=== PATIENT | female | born 1935 | race Caucasian/White ===

== ENCOUNTER → 2016-08-21 | Outpatient (CLI) | payer MEDICARE, BC | LOC: RAD 18:36 | PROVIDERS: ATTEND Internal Medicine | DX: C34.11 Malignant neoplasm of upper lobe, right bronchus or lung (principal) | CPT/HCPCS: 82565; 71552; A9576 ==

== ENCOUNTER 2016-08-25 13:44 | Day surgery (SDC) | payer MEDICARE, BC ==
[~2016-08-25 13:44] MED LIST: ACETAMINOPHEN 325 MG TABLET PO PRN; CIPROFLOXACIN 400 MG/D5W RTU 400 MG/200 ML RTUPB IV PRN; RINGERS SOLUTION,LACTATED 1,000 ML IV PRN
[2016-08-25] MEDS ORDERED: LIDOCAINE 1%/EPINEPHRINE INJ 20 ML VIAL ONE (14:42)
[2016-08-25 14:57] LABS: ANION GAP 16 (5-19); BLOOD UREA NITROGEN 22 mg/dL (7-20); CALCIUM 10.3 mg/dL (8.4-10.2); CARBON DIOXIDE 25 mmol/L (22-30); CHLORIDE 102 mmol/L (98-107); CREATININE RESULT 0.95 mg/dL (0.52-1.25); GLUCOSE 137 mg/dL (75-110); POTASSIUM 4.2 mmol/L (3.6-5.0); SODIUM 143.3 mmol/L (137-145)
[2016-08-25] MEDS ORDERED: KETAMINE HCL INJ 500 MG/10 ML VIAL ONE (15:19)
[2016-08-25] MEDS ORDERED: MIDAZOLAM 2 MG/2 ML INJ ONE ×2 (15:19)
[2016-08-25] MEDS ORDERED: FENTANYL CITRATE INJ/PF 100 MCG/2 ML AMPUL ONE (15:19)
[2016-08-25] MEDS ORDERED: PROPOFOL INJ 200 MG/20 ML VIAL IV ONE (15:20)
[2016-08-25] MEDS ORDERED: DIPHENHYDRAMINE HCL 50 MG/ML VIAL IV PRN (16:40)
[2016-08-25] MEDS ORDERED: PROMETHAZINE HCL INJ 25 MG/1 ML VIAL IV PRN (16:40)
[2016-08-25] MEDS ORDERED: ONDANSETRON HCL INJ/PF 4 MG/2 ML SDV IV PRN (16:40)
--- NOTE | 2016-08-25 16:57 | Operative Report ---
Operative Report DATE OF SURGERY: 08/25/16 PREOPERATIVE DIAGNOSIS: Locally advanced non-small cell lung carcinoma POSTOPERATIVE DIAGNOSIS: Same OPERATION: 1. Focused ultrasound of the neck. 2. ultrasound directed insertion of the lumen left subclavian [id number] catheter. 3. Interpretation of intraoperative fluoroscopy SURGEON: VICTORINA SUAREZ ANESTHESIA: LMAC TISSUE REMOVED OR ALTERED: None COMPLICATIONS: None ESTIMATED BLOOD LOSS: scant INTRAOPERATIVE FINDINGS: See below PROCEDURE: Informed consent was obtained. The patient was placed in Trendelenburg the left neck and chest wall were exposed, and prepped and draped in a sterile fashion. Surgical plan and surgical timeout discussed. The left neck was anesthetized with 1% lidocaine without epinephrine. Using the variable frequency linear transducer, real time, a micro-needle and wire were threaded into the left internal jugular vein. A suitable site for placement of 4 screws in the left subclavian position. Skin was anesthetized 1% lidocaine without epinephrine. A 3 cm incision was made with the knife, then electrocautery and blunt finger dissection used to develop a pocket large enough to accommodate a single-chamber port. Catheter was then attached to the port, the port tapped into position and the catheter tunneled between the 2 incisions. We then switched the micro-needle over to a conventional needle by placing the micro-introducer over the microwire, removing the wire, inserting a 0.035 conventional wire. Under fluoroscopic guidance, The tract was dilated up, the dilator removed, and the single lumen central venous access catheter was threaded into the right internal jugular vein uneventfully such that the catheter was unkinked with the tip in the superior vena cava. There was excellent aspiration and flush of saline using a Yoon needle through the single -lumen . Wounds closed with 3-0 Vicryl benzoin and Steri-Strips. The patient tolerated the procedure well. There were no complications. Portable upright chest x-ray pending at time of dictation.
--- NOTE | 2016-08-25 17:00 | PDOC DISCHARGE SUMMARY ---
Discharge Summary (SDC) - Discharge Final Diagnosis: Local advanced non-small cell lung carcinoma Date of Surgery: 08/25/16 Discharge Date: 08/25/16 Condition: Good Treatment or Instructions: [facility] [address] [place] [id number] Discharge Instructions: Neck Surgery 1. General Information: a. Do not drive a car or operate machinery for 1-2 weeks or as long as taking narcotics for pain. b. Do not consume alcohol, tranquilizers, sleeping medications or any non- prescribed medications for 24 hours unless approved by your doctor or as long as taking pain medication. c. Do not make important decisions or sign any important papers for the first 24 hours after surgery. d. When discharged home the same day of surgery have a responsible person with you for the first night. 2. Activity Restrictions: 2 weeks. a. Avoid heavy lifting > 10 lbs, straining, sports, mowing lawn, shoveling snow, vacuum cleaning and bending over a lot. Limit bending to taking a shower and getting dressed. Sleep with head elevated (2 pillows). b. Walking is important to avoid blood clots in the legs and deep breathing can prevent pneumonia. c. It is fine to go up and down steps, ride in a car, and use a stationary bike with low resistance. A shower in 2 days. 3. Treatment: a. The dressing can be removed the day after surgery and to shower then daily is fine, but you should not bathe in the tub or go swimming for 2 weeks. The paper strips (steri-strips) on the skin will fall off and can get wet with a shower, just pat them dry. The sutures dissolve and the strips will be removed in the office on your follow up visit if they have not fallen off by then. May shower 24 hours after surgery; if your incision was glued you may wash your neck and expect glue to fall off in about 2 weeks. b. Do not use oils, powders or lotion on your incision until after the first postoperative visit. Then you may begin to apply daily to the incision a cream of your choice (Vitamin E, cocoa butter, scar creams) to help soften the scar. c. If you are fair skinned it would be ricardo to use sunscreen on the scar for the first 6 months or keep it covered to avoid tanning pigment deposits being trapped in the scar creating a dark line instead of a pink scar. 4. Medications: a. You may take narcotic prescription tablets for pain if needed, one or two every 4 hours (Toradol ). b. Stop the narcotic when able since you cannot take and drive and they may cause constipation. You may switch to plain Tylenol, Advil or Aleve as you transition from the narcotic. Many adults find good pain relief with Ibuprofen 600-800 mg three times a day with meals to work well to avoid narcotic use. High doses of Ibuprofen should only be used for short courses since it can cause indigestion, ulcer bleeding in the stomach and harm kidney function. c. You should resume all normal medications unless a change is specified by your doctors. d. a. If going home same day of surgery you should begin with clear liquids and if do well then advance to a normal diet with foods low in fat and protein. Small portion sizes may be ricardo the first night to lessen risk of vomiting. b. When discharged after a hospital stay you may resume a normal diet. 6. Notify Physician If: a. Worsening of pain or swelling in neck, persistent bleeding at the operative site, nausea and vomiting, fever above 101, unable to urinate and bladder pressure after 8-12 hours, increased redness, drainage, or foul smelling discharge from the incision. b. If you have difficulty breathing or chest pain, call an ambulance and/or go to the Emergency Room. 7. Follow Up Care: a. Schedule a follow up appointment with your doctor for 2 weeks. In the event of any postoperative problems or questions or you may call the office during business hours or the On-Call physician evenings and weekends at [facility]. [facility] 8. I understand the instructions for my postoperative care as described above and a copy has been given to me. Patient/Significant Other Witness Date Prescriptions: Ketorolac Tromethamine [Toradol 10 mg Tablet] 10 mg PO Q6 PRN #20 tablet PRN Reason: Discharge Diet: As Tolerated Discharge Activity: Activity As Tolerated Home Care Assistance: None Needed Report the Following to Your Physician Immediately: Shortness of Breath, Increase in Pain, Fever over 101 Degrees
[2016-08-25 19:08] VITALS: BP 134/64
== END 2016-08-25 19:05 | disposition home or self-care (01) ==
LOC: CCL 13:44
PROVIDERS: ATTEND Surgery
PROC: 05H633Z Insertion of Infusion Device into Left Subclavian Vein, Percutaneous Approach (ICD-10-PCS; principal; 2016-08-25 16:00)
DX: C34.11 Malignant neoplasm of upper lobe, right bronchus or lung (principal); E11.9 Type 2 diabetes mellitus without complications; M19.90 Unspecified osteoarthritis, unspecified site; I10 Essential (primary) hypertension; J44.9 Chronic obstructive pulmonary disease, unspecified; Z88.8 Allergy status to other drugs, medicaments and biological substances; Z88.0 Allergy status to penicillin; Z87.442 Personal history of urinary calculi; Z87.891 Personal history of nicotine dependence; Z85.118 Personal history of other malignant neoplasm of bronchus and lung; Z79.84 Long term (current) use of oral hypoglycemic drugs; Z79.899 Other long term (current) drug therapy; Z79.82 Long term (current) use of aspirin
CPT/HCPCS: 36415; 82962; 80048; 71010; 77001; 36561; C1752; C1788; J2250; J3010; J3490; J2704; J0744; J1642; 532

== ENCOUNTER 2016-11-29 12:56 | Emergency (ER) | payer MEDICARE, BC ==
[2016-11-29] MEDS ORDERED: ASPIRIN 81 MG TABLET, CHEWABLE PO ONE (13:26)
--- NOTE | 2016-11-29 13:38 | ER Document Report ---
ED Medical Screen (RME) - General Chief Complaint: Weakness Stated Complaint: FATIGUE Time Seen by Provider: 11/29/16 13:28 TRAVEL OUTSIDE OF THE [place] IN LAST 30 DAYS: No - HPI Patient complains to provider of: General Weakness, Tachycardia, Hypotension Onset: Yesterday Notes: Obese female with known diagnosis of lung cancer presents with approximately 2 day history of persistent tachycardia with a lower than normal blood pressure and generalized weakness fatigue. Patient last chemotherapy approximately 4 weeks ago. Patient does have a port for chemotherapy. Patient was feeling well on Thursday was actually out cutting the grass and her family form on a tractor. After that she states she was feeling unwell. Took her heart rate and blood pressure at home. Heart rate greater than 130 systolic blood pressure approximately 80. Patient contacted her oncologist. Recommended patient hold blood pressure medication and be evaluated in the emergency department soon as possible. Patient presents today now still stating she has persistent fast beat. Generalized malaise. Patient denies syncope, chest pain , shortness of breath, nausea, vomiting, diaphoresis 11/29/16 13:31 11/29/16 13:39 - Related Data Allergies/Adverse Reactions: fluvastatin sodium [From Lescol] Allergy (Severe, Verified 11/29/16 13:09) Hives levofloxacin Allergy (Severe, Verified 11/29/16 13:09) N AND V pioglitazone [From Actos] Allergy (Severe, Verified 11/29/16 13:09) RASH amoxicillin [Amoxicillin] Allergy (Mild, Verified 11/29/16 13:09) Hives benazepril HCl [From Lotensin] Adverse Reaction (Mild, Verified 11/29/16 13:09) COUGH ramipril [From Altace] Adverse Reaction (Mild, Verified 11/29/16 13:09) COUGH simvastatin [From Zocor] Adverse Reaction (Mild, Verified 11/29/16 13:09) Hives Past Medical History - Past Medical History Cardiac Medical History: Reports: Hx Hypertension - ON MEDS Denies: Hx Coronary Artery Disease, Hx Heart Attack Pulmonary Medical History: Denies: Hx Asthma, Hx Bronchitis, Hx COPD, Hx Pneumonia Neurological Medical History: Denies: Hx Cerebrovascular Accident, Hx Seizures Renal/ Medical History: Denies: Hx Peritoneal Dialysis GI Medical History: Denies: Hx Hepatitis, Hx Hiatal Hernia, Hx Ulcer Musculoskeltal Medical History: Reports Hx Arthritis - all over Infectious Medical History: Denies: Hx Hepatitis Past Surgical History: Reports: Hx Vascular Surgery - port. Denies: Hx Hysterectomy, Hx Mastectomy, Hx Open Heart Surgery, Hx Pacemaker - Immunizations Hx Diphtheria, Pertussis, Tetanus Vaccination: No Review of Systems - Review of Systems Cardiovascular: Heart racing Physical Exam - Vital signs Vitals: Temp Pulse Resp BP Pulse Ox 98.4 F 129 H 18 116/51 L 93 11/29/16 13:07 11/29/16 13:07 11/29/16 13:07 11/29/16 13:07 11/29/16 13:07 - Respiratory Respiratory status: No respiratory distress. No: Depressed respirations, Retractions, Tachypnea Breath sounds: Normal. No: Rales - Cardiovascular Rhythm: Tachycardia Course - Vital Signs Vital signs: Temp Pulse Resp BP Pulse Ox 98.4 F 129 H 18 116/51 L 93 11/29/16 13:07 11/29/16 13:07 11/29/16 13:07 11/29/16 13:07 11/29/16 13:07
[2016-11-29] MEDS ORDERED: NORMAL SALINE 1000 ML 500 ML IV ONE ×2 (14:07→16:09)
--- NOTE | 2016-11-29 14:10 | ER Document Report ---
ED Dizziness/Weakness - General Chief Complaint: Weakness Stated Complaint: FATIGUE Time Seen by Provider: 11/29/16 13:28 Mode of Arrival: Ambulatory Information source: Patient, Relative Notes: Patient presents with family stating that she has felt generalized fatigue the past 2 months. Patient states that she had her check her blood pressure and she noticed that she was hypotensive and tachycardic for the past 2 days. Patient called her primary doctor who advised having her come to the hospital for evaluation. Patient denies any syncope, chest pain, shortness of breath, nausea, or vomiting. Patient does have an appointment with her primary doctor on Thursday for recheck. Patient denies any recent illness. Patient assumed that her heart rate was beating fast as she had recently and mowed her lawn on a riding lawnmower 2 days ago. Family have been keeping a log of her vital signs since yesterday. Patient blood pressure yesterday was 81/59 with heart rate of 122. Patient's blood pressure earlier today was 87/57 and her heart rate was 115 patient did not take her blood pressure medication this morning due to her hypotension. At 1145 patient's heart rate was in the 120s and her pressure was 101/54. TRAVEL OUTSIDE OF THE [place] IN LAST 30 DAYS: No - HPI Patient complains to provider of: Weakness. No: Dizziness, Syncope Onset: Other - fatigue x2 months, tachycardia x 2 days Onset/Duration: Persistent Quality of pain: No pain Pain Level: Denies Associated symptoms: denies: Chest pain, Dizzy, Fainted, Headache, Nausea, Short of breath, Sweating, Vomiting Baseline gait: Walks w/o assistance - Related Data Allergies/Adverse Reactions: fluvastatin sodium [From Lescol] Allergy (Severe, Verified 11/29/16 13:09) Hives levofloxacin Allergy (Severe, Verified 11/29/16 13:09) N AND V pioglitazone [From Actos] Allergy (Severe, Verified 11/29/16 13:09) RASH amoxicillin [Amoxicillin] Allergy (Mild, Verified 11/29/16 13:09) Hives benazepril HCl [From Lotensin] Adverse Reaction (Mild, Verified 11/29/16 13:09) COUGH ramipril [From Altace] Adverse Reaction (Mild, Verified 11/29/16 13:09) COUGH simvastatin [From Zocor] Adverse Reaction (Mild, Verified 11/29/16 13:09) Hives Past Medical History - General Information source: Patient, Relative - Social History Smoking Status: Never Smoker Frequency of alcohol use: None Drug Abuse: None Lives with: Spouse/Significant other Family History: Reviewed & Not Pertinent - Past Medical History Cardiac Medical History: Reports: Hx Hypertension - ON MEDS Denies: Hx Coronary Artery Disease, Hx Heart Attack Pulmonary Medical History: Denies: Hx Asthma, Hx Bronchitis, Hx COPD, Hx Pneumonia Neurological Medical History: Denies: Hx Cerebrovascular Accident, Hx Seizures Endocrine Medical History: Reports: Hx Diabetes Mellitus Type 2 Renal/ Medical History: Denies: Hx Peritoneal Dialysis Malignancy Medical History: Reports: Hx Lung Cancer GI Medical History: Denies: Hx Hepatitis, Hx Hiatal Hernia, Hx Ulcer Infectious Medical History: Denies: Hx Hepatitis Past Surgical History: Reports: Hx Vascular Surgery - port. Denies: Hx Hysterectomy, Hx Mastectomy, Hx Open Heart Surgery, Hx Pacemaker - Immunizations Hx Diphtheria, Pertussis, Tetanus Vaccination: No Review of Systems - Review of Systems Constitutional: No symptoms reported. denies: Fever, Recent illness EENT: No symptoms reported Cardiovascular: Heart racing - past 2 days. denies: Chest pain, Syncope, Dizziness Respiratory: No symptoms reported. denies: Cough, Hurts to breathe, Short of breath Gastrointestinal: No symptoms reported. denies: Abdominal pain, Nausea, Vomiting Genitourinary: No symptoms reported. denies: Dysuria, Flank pain Female Genitourinary: No symptoms reported Musculoskeletal: No symptoms reported. denies: Back pain, Neck pain Skin: No symptoms reported Hematologic/Lymphatic: No symptoms reported Neurological/Psychological: No symptoms reported Physical Exam - Vital signs Vitals: Temp Pulse Resp BP Pulse Ox 98.4 F 129 H 18 116/51 L 93 11/29/16 13:07 11/29/16 13:07 11/29/16 13:07 11/29/16 13:07 11/29/16 13:07 - General General appearance: Appears well, Alert In distress: None - HEENT Head: Normocephalic, Atraumatic Eyes: Normal Conjunctiva: Normal Extraocular movements intact: Yes Pupils: PERRL Nasal: Normal Mouth/Lips: Normal Mucous membranes: Normal Pharynx: Normal Neck: Normal, Supple. No: Lymphadenopathy - Respiratory Respiratory status: No respiratory distress Chest status: Nontender Breath sounds: Normal. No: Rales, Rhonchi, Stridor, Wheezing Chest palpation: Normal - Cardiovascular Rhythm: Tachycardia Heart sounds: S1 appreciated, S2 appreciated Murmur: No - Abdominal Inspection: Normal Distension: No distension Bowel sounds: Normal Tenderness: Nontender Organomegaly: No organomegaly - Back Back: Normal, Nontender. No: CVA tenderness, Vertebra tenderness - Extremities General upper extremity: Normal inspection, Normal ROM General lower extremity: Normal inspection, Normal ROM - Neurological Neuro grossly intact: Yes Cognition: Normal Jyoti Coma Scale Eye Opening: Spontaneous Sargents Coma Scale Verbal: Oriented Jyoti Coma Scale Motor: Obeys Commands Jyoti Coma Scale Total: 15 - Psychological Associated symptoms: Normal affect, Normal mood - Skin Skin Temperature: Warm Skin Moisture: Dry Skin Color: Pale Course - Re-evaluation Re-evalutation: 11/29/16 15:15 500 ml saline bolus infused, patient states that she is feeling good at this time. Patient's heart rate has come down to the 100s, there is stable, will continue to monitor. 11/29/16 16:34 monitor technician now with irregular heart rhythm in the 100's, repeat ekg ordered. RN states she noticed rhythm change after ambulating pt to bathroom 11/29/16 17:[address] Suarez who recommends obtaining repeat trop. Agrees with plan to road test pt, if pt remains tachycardic, he advises consultation with hospitalist 11/29/16 17:47 Patient ambulated in the department, oxygen saturation dipped to 92%, heart rate increased to 133, blood pressure remained stable 142/93. Patient denies any chest pain but complains only of generalized fatigue. Pt was objectively dyspnic on exertion. 11/29/16 18:[address] Grady who recommends consultation with hospitalist for obs admission. States that pt will need cardiology consult and likely stress test. consulted with dr Wilkins who reviewed pt's diagnostic test results and does not feel admission would be beneficial and that pt's dyspnea and tachycardia are likely a result of age, hx, and recent cancer treatments. 11/29/16 18:25 Dr Suarez spoke with Dr Wilkins, Dr Wilkins declines admitting pt at this time, Dr Suarez discussed concerns about pt's tachycardia in spite of pt's otherwise benign diagnostic tests results. 11/29/16 18:40 Dr Suarez to bedside for exam, does not recommend any additional testing. Discussed plan of care with pt and family. Pt encouraged to continue to keep track of vital signs and return for any concerns. Pt advised to hold amlodipine. Pt advised to check bp prior to taking her bp medications. Pt encouraged to see her PCP Thursday as planned. No concern for PE. Pt continues to deny any cp, abd or back pain. VS continue with HR 107, sat 95% rr 18. - Vital Signs Vital signs: Temp Pulse Resp BP Pulse Ox 98.4 F 129 H 18 116/51 L 93 11/29/16 13:07 11/29/16 13:07 11/29/16 13:07 11/29/16 13:07 11/29/16 13:07 - Laboratory Result Diagrams: 11/29/16 14:52 11/29/16 14:52 Laboratory results interpreted by me: 11/29/16 11/29/16 11/29/16 14:04 14:52 14:52 Hgb 11.9 L Hct 35.0 L RDW 18.3 H BUN 23 H Est GFR ( Amer) 58 L Est GFR (Non-Af Amer) 48 L Glucose 120 H POC Glucose 143 H Magnesium 1.4 L Labs- Entire Visit 11/29/16 11/29/16 11/29/16 14:04 14:52 14:52 WBC 7.9 RBC 3.88 Hgb 11.9 L Hct 35.0 L MCV 90 MCH 30.7 MCHC 34.0 RDW 18.3 H Plt Count 363 Seg Neutrophils % 70.2 Lymphocytes % 15.9 Monocytes % 11.9 Eosinophils % 1.6 Basophils % 0.4 Absolute Neutrophils 5.5 Absolute Lymphocytes 1.2 Absolute Monocytes 0.9 Absolute Eosinophils 0.1 Absolute Basophils 0.0 PT INR D-Dimer VBG pH VBG pCO2 VBG HCO3 VBG Base Excess Sodium 138.5 Potassium 3.8 Chloride 100 Carbon Dioxide 25 Anion Gap 14 BUN 23 H Creatinine 1.09 Est GFR ( Amer) 58 L Est GFR (Non-Af Amer) 48 L Glucose 120 H POC Glucose 143 H Lactic Acid Calcium 8.9 Magnesium 1.4 L Total Bilirubin 0.5 Direct Bilirubin 0.3 Indirect Bilirubin Not Reportable Neonat Total Bilirubin Not Reportable AST 18 ALT 26 Alkaline Phosphatase 54 Troponin I Total Protein 6.8 Albumin 3.8 TSH Urine Color Urine Appearance Urine pH Ur Specific [place] Urine Protein Urine Glucose (UA) Urine Ketones Urine Blood Urine Nitrite Urine Bilirubin Urine Urobilinogen Ur Leukocyte Esterase Urine WBC (Auto) Urine Mucus (Auto) Urine Ascorbic Acid 11/29/16 11/29/16 11/29/16 14:52 14:52 14:52 WBC RBC Hgb Hct MCV MCH MCHC RDW Plt Count Seg Neutrophils % Lymphocytes % Monocytes % Eosinophils % Basophils % Absolute Neutrophils Absolute Lymphocytes Absolute Monocytes Absolute Eosinophils Absolute Basophils PT 13.8 INR 0.99 D-Dimer VBG pH VBG pCO2 VBG HCO3 VBG Base Excess Sodium Potassium Chloride Carbon Dioxide Anion Gap BUN Creatinine Est GFR ( Amer) Est GFR (Non-Af Amer) Glucose POC Glucose Lactic Acid 1.3 Calcium Magnesium Total Bilirubin Direct Bilirubin Indirect Bilirubin Neonat Total Bilirubin AST ALT Alkaline Phosphatase Troponin I < 0.012 Total Protein Albumin TSH Urine Color Urine Appearance Urine pH Ur Specific [place] Urine Protein Urine Glucose (UA) Urine Ketones Urine Blood Urine Nitrite Urine Bilirubin Urine Urobilinogen Ur Leukocyte Esterase Urine WBC (Auto) Urine Mucus (Auto) Urine Ascorbic Acid 11/29/16 11/29/16 11/29/16 14:52 14:52 14:52 WBC RBC Hgb Hct MCV MCH MCHC RDW Plt Count Seg Neutrophils % Lymphocytes % Monocytes % Eosinophils % Basophils % Absolute Neutrophils Absolute Lymphocytes Absolute Monocytes Absolute Eosinophils Absolute Basophils PT INR D-Dimer 0.31 VBG pH 7.41 VBG pCO2 43.5 VBG HCO3 27.0 VBG Base Excess 2.0 Sodium Potassium Chloride Carbon Dioxide Anion Gap BUN Creatinine Est GFR ( Amer) Est GFR (Non-Af Amer) Glucose POC Glucose Lactic Acid Calcium Magnesium Total Bilirubin Direct Bilirubin Indirect Bilirubin Neonat Total Bilirubin AST ALT Alkaline Phosphatase Troponin I Total Protein Albumin TSH 0.77 Urine Color Urine Appearance Urine pH Ur Specific [place] Urine Protein Urine Glucose (UA) Urine Ketones Urine Blood Urine Nitrite Urine Bilirubin Urine Urobilinogen Ur Leukocyte Esterase Urine WBC (Auto) Urine Mucus (Auto) Urine Ascorbic Acid 11/29/16 11/29/16 15:58 17:14 WBC RBC Hgb Hct MCV MCH MCHC RDW Plt Count Seg Neutrophils % Lymphocytes % Monocytes % Eosinophils % Basophils % Absolute Neutrophils Absolute Lymphocytes Absolute Monocytes Absolute Eosinophils Absolute Basophils PT INR D-Dimer VBG pH VBG pCO2 VBG HCO3 VBG Base Excess Sodium Potassium Chloride Carbon Dioxide Anion Gap BUN Creatinine Est GFR ( Amer) Est GFR (Non-Af Amer) Glucose POC Glucose Lactic Acid Calcium Magnesium Total Bilirubin Direct Bilirubin Indirect Bilirubin Neonat Total Bilirubin AST ALT Alkaline Phosphatase Troponin I < 0.012 Total Protein Albumin TSH Urine Color YELLOW Urine Appearance CLEAR Urine pH 5.0 Ur Specific [place] 1.006 Urine Protein NEGATIVE Urine Glucose (UA) NEGATIVE Urine Ketones NEGATIVE Urine Blood NEGATIVE Urine Nitrite NEGATIVE Urine Bilirubin NEGATIVE Urine Urobilinogen NEGATIVE Ur Leukocyte Esterase NEGATIVE Urine WBC (Auto) 1 Urine Mucus (Auto) RARE Urine Ascorbic Acid NEGATIVE 11/29/16 19:02 - Diagnostic Test Radiology reviewed: Reports reviewed - EKG Interpretation by Me EKG shows normal: Sinus rhythm Rate: Tachycardia Rhythm: APC's Discharge - Discharge Clinical Impression: Tachycardia, Exertional dyspnea Condition: Stable Disposition: HOME, SELF-CARE Instructions: Dyspnea, Nonspecific ([facility]) Additional Instructions: Return immediately for any new or worsening symptoms Followup with your primary care provider, on Thursday as planned Hold your amlodipine until you are re seen by your primary doctor check your vital signs at least 3 times a day until re evaluated by your primary care provider avoid any heavy exertion follow [facility] with [facility] further evaluation Referrals: MANINDER BALDERAS MD [Primary Care Provider] - 12/01/16 CHRIS NICOLE MD [ACTIVE STAFF] - Follow up in 3-5 days
--- NOTE | 2016-11-29 14:21 | RADIOLOGY REPORT (SQ) ---
EXAM DESCRIPTION: CHEST SINGLE VIEW COMPLETED DATE/TIME: 11/29/2016 2:00 pm REASON FOR STUDY: HR COMPARISON: 08/25/2016 NUMBER OF VIEWS: One view. TECHNIQUE: Single frontal radiographic view of the chest acquired. LIMITATIONS: None. FINDINGS: LUNGS AND PLEURA: Emphysematous changes. Stable areas of right apical scarring. MEDIASTINUM AND HILAR STRUCTURES: No masses. Contour normal. HEART AND VASCULAR STRUCTURES: Heart normal in size. Normal vasculature. BONES: No acute findings. HARDWARE: Stable position of left-sided port. OTHER: No other significant finding. IMPRESSION: COPD. NO ACUTE RADIOGRAPHIC FINDING IN THE CHEST. TECHNICAL DOCUMENTATION: JOB ID: [id number] [email or web address]- All Rights Reserved
--- NOTE | 2016-11-29 15:15 | EKG REPORT ---
SEVERITY:- BORDERLINE ECG - SINUS TACHYCARDIA BORDERLINE T ABNORMALITIES, ANT-LAT LEADS : Confirmed by: Kiesha Mustafa MD 29-Nov-2016 15:14:34
[2016-11-29 15:24] LABS: ABSOLUTE EOSINOPHILS # (AUTO) 0.1 10^3/uL (0.0-0.6); ABSOLUTE LYMPHOCYTES (AUTO) 1.2 10^3/uL (0.5-4.7); ABSOLUTE MONOCYTES (AUTO) 0.9 10^3/uL (0.1-1.4); ABSOLUTE NEUT (AUTO) 5.5 10^3/uL (1.7-8.2); BASOPHILS % (AUTO) 0.4 % (0-2); EOSINOPHILS % (AUTO) 1.6 % (0-6); HEMOGLOBIN 11.9 g/dL (12.0-15.5); HGB HCT DIFFERENCE 0.7; LYMPHOCYTES % (AUTO) 15.9 % (13-45); MEAN CORPUSCULAR HEMOGLOBIN 30.7 pg (27.0-33.4); MEAN CORPUSCULAR VOLUME 90 fl (80-97); MONOCYTES % (AUTO) 11.9 % (3-13); RED BLOOD COUNT 3.88 10^6/uL (3.72-5.28); RED CELL DISTRIBUTION WIDTH 18.3 % (11.5-14.0); SEGMENTED NEUTROPHILS % (AUTO) 70.2 % (42-78); VENOUS BLOOD PCO2 43.5 mmHg (35-63); VENOUS BLOOD PH 7.41 (7.30-7.42); WHITE BLOOD COUNT 7.9 10^3/uL (4.0-10.5)
[2016-11-29 15:31] LABS: PROTHROMBIN TIME 13.8 SEC (11.4-15.4)
[2016-11-29 15:41] LABS: ALANINE AMINOTRANSFERASE 26 U/L (9-52); ALBUMIN 3.8 g/dL (3.5-5.0); ALKALINE PHOSPHATASE 54 U/L (38-126); ANION GAP 14 (5-19); ASPARTATE AMINO TRANSFERASE 18 U/L (14-36); BILIRUBIN,DIRECT 0.3 mg/dL (0.0-0.4); BILIRUBIN,TOTAL 0.5 mg/dL (0.2-1.3); BLOOD UREA NITROGEN 23 mg/dL (7-20); CALCIUM 8.9 mg/dL (8.4-10.2); CARBON DIOXIDE 25 mmol/L (22-30); CHLORIDE 100 mmol/L (98-107); CREATININE RESULT 1.09 mg/dL (0.52-1.25); GLUCOSE 120 mg/dL (75-110); MAGNESIUM 1.4 mg/dL (1.6-2.3); POTASSIUM 3.8 mmol/L (3.6-5.0); SODIUM 138.5 mmol/L (137-145); TOTAL PROTEIN 6.8 g/dL (6.3-8.2)
[2016-11-29 16:23] LABS: APPEARANCE,URINE CLEAR; BILIRUBIN,URINE NEGATIVE (NEGATIVE); GLUCOSE, URINE NEGATIVE (NEGATIVE); KETONES,URINE NEGATIVE (NEGATIVE); LEUKOCYTE ESTERASE,URINE NEGATIVE (NEGATIVE); NITRITE,URINE NEGATIVE (NEGATIVE); PROTEIN,URINE NEGATIVE (NEGATIVE); URINE SPECIFIC GRAVITY 1.006; UROBILINOGEN,URINE NEGATIVE mg/dL (<2.0)
[2016-11-29] MEDS ORDERED: MAGNESIUM OXIDE 400 MG TABLET PO ONE (17:15)
[2016-11-29] MEDS ORDERED: HEPARIN SOD (PORCINE) 1,000 UNIT/ML 10 ML VIAL ONE (19:22)
[2016-11-29 19:36] VITALS: BP 129/70
--- NOTE | 2016-11-30 11:10 | EKG REPORT ---
SEVERITY:- ABNORMAL ECG - SINUS TACHYCARDIA MULTIPLE ATRIAL PREMATURE COMPLEXES BORDERLINE T ABNORMALITIES, ANT-LAT LEADS : Confirmed by: Kiesha Mustafa MD 30-Nov-2016 11:09:33
== END 2016-11-29 19:25 | disposition home or self-care (01) ==
LOC: ER 12:56
DX: R00.0 Tachycardia, unspecified (principal); R06.00 Dyspnea, unspecified; R53.1 Weakness; R53.83 Other fatigue
CPT/HCPCS: 93005; 36591; 99285; 36415; 87040; 87086; 82962; 83735; 84443; 85025; 85610; 87088; 80053; 81001; 84484; 87186; 85379; 82803; 83605; 71010; 93010; A9270 ×2; J7030

== ENCOUNTER → 2017-05-12 | Outpatient (CLI) | payer MEDICARE, BC ==
--- NOTE | 2017-05-12 09:01 | RADIOLOGY REPORT (SQ) ---
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 Images reviewed with lung, soft tissue and bone windows. Reconstructed coronal and sagittal MPR images reviewed. All images st ored on PACS. All CT scanners at this facility use dose modulation, iterative reconstruction, and/or weight based d osing when appropriate to reduce radiation dose to as low as reasonably achievable (ALARA). [facility]: Dose Right [facility]: CareDose [facility]: Dose Right [facility]: Teradose 4D [facility]: [employer] RADIATION DOSE: CT Rad equipment meets quality standard of care and radiation dose reduction techniq ues were employed. CTDIvol: 3.6 mGy. DLP: 150 mGy-cm. mGy. LIMITATIONS: No technical limitations. FINDINGS: LUNGS AND PLEURA: In the apical posterior segment right upper lobe, bandlike consolidation and volume loss with bronchiectasis is present, similar compared to PET-CT 01/04/2017. Remainder of the lungs exhibit diffuse obstructive lung disease with hyperinflation and hyperlucency. No worrisome pulmonary nodules. There is a small right pleural effusion, increased compared to PET-CT 01/04/2017. No pneumothorax. HILAR AND MEDIASTINAL STRUCTURES: There is a 1.2 x 0.8 cm precarinal lymph node (was 1.7 x 1 cm in si ze on 01/04/2017). HEART AND VASCULAR STRUCTURES: No aneurysm. No pericardial effusion. Heavily calcified [place] coron jorge arteries and aortic valve UPPER ABDOMEN: No significant findings. Limited exam. THYROID AND OTHER SOFT TISSUES: No masses. No adenopathy. BONES: Osteoporotic HARDWARE: None in the chest. OTHER: No other significant findings. IMPRESSION: Stable scarring in the apical posterior segment right upper lobe Decrease in size of precarinal lymph node compared to PET-CT 01/04/2017 Interval development of a small right pleural effusion TECHNICAL DOCUMENTATION: JOB ID: [id number] Quality ID # [id number]: Final reports with documentation of one or more dose reduction techniques (e.g., Au tomated exposure control, adjustment of the mA and/or kV according to patient size, use of iterative reconstruction technique) 2010 [employer]- All Rights Reserved
== END ==
LOC: RAD 08:24
PROVIDERS: ATTEND Internal Medicine
DX: C34.11 Malignant neoplasm of upper lobe, right bronchus or lung (principal)
CPT/HCPCS: 71250

== ENCOUNTER → 2017-08-29 | Outpatient (CLI) | payer MEDICARE, BC ==
--- NOTE | 2017-08-29 15:46 | RADIOLOGY REPORT (SQ) ---
EXAM DESCRIPTION: MRI LUMBAR SPINE WITHOUT COMPLETED DATE/TIME: 08/29/2017 12:38 pm REASON FOR STUDY: RADICULOPATHY, LUMBAR REGION M54.17 RADICULOPATHY, LUMBOSACRAL REGION COMPARISON: None. TECHNIQUE: Sagittal and Axial imaging includes T1, T2, STIR and gradient echo sequences. Coronal T2/ HASTE imaging. LIMITATIONS: None. FINDINGS: VISUALIZED UPPER ABDOMEN: Limited evaluation. No acute or suspicious findings suggested. SEGMENTATION: No transitional anatomy. The lowest well-developed disc space is labeled L5-S1. ALIGNMENT: Marked convex left scoliosis. VERTEBRAE: Intact. BONE MARROW: Normal. No marrow replacement or reactive changes. DISC SIGNAL: Desiccation multiple levels. POSTERIOR ELEMENTS: Intact. HARDWARE: None in the spine. CORD AND CONUS: Normal in size and signal intensity. Conus at the appropriate level. SOFT TISSUES: No aortic aneurysm seen. No bulky retroperitoneal adenopathy or mass. No paraspinal mas s or fluid. L1-L2: Ventral impression on thecal sac due to disc bulge. L2-L3: Ventral impression on the thecal sac due to disc bulge. Mild facet arthropathy. L3-L4: Mild spinal stenosis due to disc osteophyte complex. Disc material contacts the exiting right L3 nerve root in the neural foramen. L4-L5: Mild spinal stenosis. Facet arthropathy. Disc contacts the exiting right L4 nerve root in th e neural foramen. L5-S1: Small central and upward disc protrusion indenting the ventral margin of thecal sac facet arth ropathy. Disc contacts both exiting nerve roots, worse on the left. LOWER THORACIC: Incompletely imaged. No stenosis seen. SACRUM: Visualized upper sacrum intact. OTHER: No other significant findings. IMPRESSION: Spondylosis, scoliosis and facet arthropathy. Mild spinal stenosis. Neural foraminal s tenosis. TECHNICAL DOCUMENTATION: JOB ID: [id number] [employer]- All Rights Reserved Reading location - IP/workstation name: [email or web address]
== END ==
LOC: RAD 10:39
PROVIDERS: ATTEND Internal Medicine
DX: M54.17 Radiculopathy, lumbosacral region (principal); M47.896 Other spondylosis, lumbar region
CPT/HCPCS: 72148

== ENCOUNTER → 2017-09-14 | Outpatient (CLI) | payer MEDICARE, BC ==
--- NOTE | 2017-09-14 19:33 | RADIOLOGY REPORT (SQ) ---
EXAM DESCRIPTION: CT CHEST WITHOUT COMPLETED DATE/TIME: 09/14/2017 9:07 am REASON FOR STUDY: C34.11 MALIGNANT NEOPLASM OF UPPER LOBE, RIGHT BRONCHUS OR LUNG C34.11 MALIGNANT NEOPLASM OF UPPER LOBE, RIGHT BRONCHUS OR L COMPARISON: PET-CT 01/04/2017 CT chest 05/12/2017 TECHNIQUE: CT scan performed of the chest without intravenous contrast. Images reviewed with lung, soft tissue and bone windows. Reconstructed coronal and sagittal MPR images reviewed. All images st ored on PACS. All CT scanners at this facility use dose modulation, iterative reconstruction, and/or weight based d osing when appropriate to reduce radiation dose to as low as reasonably achievable (ALARA). [facility]: Dose Right [facility]: CareDose [facility]: Dose Right [facility]: Teradose 4D [facility]: [employer] RADIATION DOSE: 3.5 mGy. LIMITATIONS: No technical limitations. FINDINGS: LUNGS AND PLEURA: Stable scarring in the posterior aspect right lung apex compared to prio r CT chest 05/12/2017 and PET-CT 01/04/2017. Remainder of the lungs are hyperinflated and hyperlucent from obstructive disease. No acute infiltrates. Pleural effusions seen 05/12/2017 and significantly smaller, with trace fluid in the right posterior co stophrenic sulcus. HILAR AND MEDIASTINAL STRUCTURES: 1.2 x 0.8 cm precarinal lymph node axial image 24, unchanged. HEART AND VASCULAR STRUCTURES: No aneurysm. No pericardial effusion. UPPER ABDOMEN: No significant findings. Limited exam. THYROID AND OTHER SOFT TISSUES: No masses. No adenopathy. BONES: No significant finding. HARDWARE: None in the chest. OTHER: No other significant findings. IMPRESSION: Stable appearance of the chest compared to CT exam 05/12/2017. TECHNICAL DOCUMENTATION: JOB ID: [id number] Quality ID # 436: Final reports with documentation of one or more dose reduction techniques (e.g., Au tomated exposure control, adjustment of the mA and/or kV according to patient size, use of iterative reconstruction technique) 2010 [employer]- All Rights Reserved Reading location - IP/workstation name: [email or web address]
== END ==
LOC: RAD 08:58
PROVIDERS: ATTEND Internal Medicine
DX: C34.11 Malignant neoplasm of upper lobe, right bronchus or lung (principal)
CPT/HCPCS: 71250

== ENCOUNTER → 2018-03-17 | Outpatient (CLI) | payer MEDICARE, BC ==
--- NOTE | 2018-03-17 09:48 | RADIOLOGY REPORT (SQ) ---
EXAM DESCRIPTION: CT CHEST WITHOUT COMPLETED DATE/TIME: 03/17/2018 8:52 am REASON FOR STUDY: LUNG CA (C34.11) C34.11 MALIGNANT NEOPLASM OF UPPER LOBE, RIGHT BRONCHUS OR L COMPARISON: 09/14/2017 TECHNIQUE: CT scan performed of the chest without intravenous contrast. Images reviewed with lung, soft tissue and bone windows. Reconstructed coronal and sagittal MPR images reviewed. All images st ored on PACS. All CT scanners at this facility use dose modulation, iterative reconstruction, and/or weight based d osing when appropriate to reduce radiation dose to as low as reasonably achievable (ALARA). [facility]: Dose Right [facility]: CareDose [facility]: Dose Right [facility]: Teradose 4D [facility]: [employer] RADIATION DOSE: CT Rad equipment meets quality standard of care and radiation dose reduction techniq ues were employed. CTDIvol: 3.6 mGy. DLP: 139 mGy-cm. mGy. LIMITATIONS: No technical limitations. FINDINGS: LUNGS AND PLEURA: Stable scarring in the posterior right upper lung and left apex. No enl arging nodules. No effusions. HILAR AND MEDIASTINAL STRUCTURES: No pathologically enlarged lymph nodes. HEART AND VASCULAR STRUCTURES: No aneurysm. No pericardial effusion. UPPER ABDOMEN: No significant findings. Limited exam. THYROID AND OTHER SOFT TISSUES: No masses. No adenopathy. BONES: No acute findings. HARDWARE: None in the chest. OTHER: Left-sided port tip in the SVC. IMPRESSION: Stable appearance of the chest. TECHNICAL DOCUMENTATION: JOB ID: [id number] Quality ID # 436: Final reports with documentation of one or more dose reduction techniques (e.g., Au tomated exposure control, adjustment of the mA and/or kV according to patient size, use of iterative reconstruction technique) 2010 [employer]- All Rights Reserved Reading location - IP/workstation name: [email or web address]
== END ==
LOC: RAD 08:41
PROVIDERS: ATTEND Internal Medicine
DX: C34.11 Malignant neoplasm of upper lobe, right bronchus or lung (principal)
CPT/HCPCS: 71250

== ENCOUNTER → 2018-04-01 | Outpatient (CLI) | payer MEDICARE, BC ==
--- NOTE | 2018-04-01 14:06 | RADIOLOGY REPORT (SQ) ---
EXAM DESCRIPTION: CAROTID DOPPLER COMPLETED DATE/TIME: 04/01/2018 1:50 pm REASON FOR STUDY: VENOUS ENGORGMENT BILATERAL EYES H34.823 VENOUS ENGORGEMENT, BILATERAL COMPARISON: None. TECHNIQUE: Grayscale ultrasound, Doppler velocity and spectra, and color Doppler images acquired of the extra-cranial carotid and vertebral arteries. Images stored on PACS. LIMITATIONS: None. FINDINGS: RIGHT CAROTID CCA Velocities: Within normal limits. ICA Velocities Peak systolic 0.71 m/s. End diastolic 0.17 m/s. Proximal ICA/CCA peak systolic ratio 1.0. Spectra normal. No significant plaque. LEFT CAROTID CCA Velocities: Within normal limits. ICA Velocities Peak systolic 0.97 m/s. End diastolic 0.23 m/s. Proximal ICA/CCA peak systolic ratio 1.5. Spectra normal. No significant plaque. VERTEBRAL ARTERIES: Antegrade flow. Normal waveforms. SUBCLAVIAN ARTERIES: No finding. OTHER: No other significant finding. IMPRESSION: NO HEMODYNAMICALLY SIGNIFICANT STENOSIS. COMMENT: Quality ID #195: Velocity criteria are extrapolated from the diameter data as defined by t he Society of Radiologists in Ultrasound Consensus Conference. Radiology 2003: 229; 340-346. TECHNICAL DOCUMENTATION: JOB ID: [id number] [employer]- All Rights Reserved Reading location - IP/workstation name: [email or web address]
== END ==
LOC: SP 12:40
PROVIDERS: ATTEND Ophthalmology
DX: H34.823 Venous engorgement, bilateral (principal)
CPT/HCPCS: 93880

== ENCOUNTER → 2018-09-15 | Outpatient (CLI) | payer MEDICARE, BC ==
--- NOTE | 2018-09-15 08:27 | RADIOLOGY REPORT (SQ) ---
EXAM DESCRIPTION: CT CHEST WITHOUT COMPLETED DATE/TIME: 09/15/2018 8:07 am REASON FOR STUDY: MALIGNANT NEOPLASM OF UPPER LOBE, RIGHT BRONCHUS OR LUNG C34.11 MALIGNANT NEOPLAS M OF UPPER LOBE, RIGHT BRONCHUS OR L COMPARISON: 03/17/2018 TECHNIQUE: CT scan performed of the chest without intravenous contrast. Images reviewed with lung, soft tissue and bone windows. Reconstructed coronal and sagittal MPR images reviewed. All images st ored on PACS. All CT scanners at this facility use dose modulation, iterative reconstruction, and/or weight based d osing when appropriate to reduce radiation dose to as low as reasonably achievable (ALARA). [facility]: Dose Right [facility]: CareDose [facility]: Dose Right [facility]: Teradose 4D [facility]: [employer] RADIATION DOSE: CT Rad equipment meets quality standard of care and radiation dose reduction techniq ues were employed. CTDIvol: 3.6 mGy. DLP: 141 mGy-cm. mGy. LIMITATIONS: No technical limitations. FINDINGS: LUNGS AND PLEURA: Persistent posterior right apical scarring and consolidation, mildly inc rease from prior. Stable appearance of the scarring at the left lung apex. Centrilobular and panac inar emphysema, stable. Stable linear bifid basilar scarring, right greater than left. No new nodul es or masses. No large effusion. No pneumothorax. HILAR AND MEDIASTINAL STRUCTURES: Unchanged evidence of right-sided volume loss with rightward medias tinal shift. Stable 1.0 cm subcarinal node. No new mediastinal hilar or axillary adenopathy. HEART AND VASCULAR STRUCTURES: Trace pericardial effusion. Scattered three-vessel coronary atheroscl erosis. Normal heart size. UPPER ABDOMEN: No significant findings. Limited exam. THYROID AND OTHER SOFT TISSUES: No masses. No adenopathy. BONES: No significant finding. HARDWARE: None in the chest. OTHER: No other significant findings. IMPRESSION: Mildly increased right posterior apical consolidation favored to represent progressive s carring and atelectasis. Although, underlying lesion is not entirely exclude. No other evidence to suggest new intrathoracic disease. No other evidence of acute intrathoracic process. TECHNICAL DOCUMENTATION: JOB ID: [id number] Quality ID # 436: Final reports with documentation of one or more dose reduction techniques (e.g., Au tomated exposure control, adjustment of the mA and/or kV according to patient size, use of iterative reconstruction technique) 2010 [employer]- All Rights Reserved Reading location - IP/workstation name: [email or web address]
== END ==
LOC: RAD 07:52
PROVIDERS: ATTEND Physician Assistant Medical
DX: C34.11 Malignant neoplasm of upper lobe, right bronchus or lung (principal)
CPT/HCPCS: 71250

== ENCOUNTER → 2019-03-07 | Outpatient (CLI) | payer MEDICARE, BC ==
--- NOTE | 2019-03-07 11:25 | RADIOLOGY REPORT (SQ) ---
EXAM DESCRIPTION: CT CHEST WITHOUT COMPLETED DATE/TIME: 03/07/2019 8:23 am REASON FOR STUDY: LUNG CA (C34.11) C34.11 MALIGNANT NEOPLASM OF UPPER LOBE, RIGHT BRONCHUS OR L COMPARISON: 09/15/2018 TECHNIQUE: CT scan performed of the chest without intravenous contrast. Images reviewed with lung, soft tissue and bone windows. Reconstructed coronal and sagittal MPR images reviewed. All images st ored on PACS. All CT scanners at this facility use dose modulation, iterative reconstruction, and/or weight based d osing when appropriate to reduce radiation dose to as low as reasonably achievable (ALARA). [facility]: Dose Right [facility]: CareDose [facility]: Dose Right [facility]: Teradose 4D [facility]: [employer] RADIATION DOSE: CT Rad equipment meets quality standard of care and radiation dose reduction techniq ues were employed. CTDIvol: 5.0 mGy. DLP: 193 mGy-cm. mGy. LIMITATIONS: No technical limitations. FINDINGS: LUNGS AND PLEURA: Persistent scarring the right upper lobe, likely is post radiation. Mil d pleural/ parenchymal scarring in the left apex. No new pulmonary mass or infiltrate. Minimal righ t pleural effusion. Emphysematous changes are present. HILAR AND MEDIASTINAL STRUCTURES: No identified masses or abnormal nodes. No obvious aneurysm. HEART AND VASCULAR STRUCTURES: No aneurysm. No pericardial effusion. UPPER ABDOMEN: No significant findings. Limited exam. THYROID AND OTHER SOFT TISSUES: No masses. No adenopathy. BONES: No significant finding. HARDWARE: None in the chest. OTHER: No other significant findings. IMPRESSION: Likely postradiation changes in right upper lobe. No metastatic disease. No recurrent neoplasm. TECHNICAL DOCUMENTATION: JOB ID: [id number] Quality ID # 436: Final reports with documentation of one or more dose reduction techniques (e.g., Au tomated exposure control, adjustment of the mA and/or kV according to patient size, use of iterative reconstruction technique) 2010 [employer]- All Rights Reserved Reading location - IP/workstation name: [email or web address]
== END ==
LOC: RAD 07:45
PROVIDERS: ATTEND Internal Medicine
DX: C34.11 Malignant neoplasm of upper lobe, right bronchus or lung (principal)
CPT/HCPCS: 71250

== ENCOUNTER 2019-09-05 08:27 | Emergency (ER) | payer MEDICARE, BC ==
--- NOTE | 2019-09-05 09:03 | ER Document Report ---
ED Fall - General Chief Complaint: Fall Stated Complaint: FALL/BACK PAIN Time Seen by Provider: 09/05/19 08:43 Primary Care Provider: MIRELA BRIGGS MD [Primary Care Provider] - Follow up as needed Notes: cHIEF COMPLAINT: Fall HPI: History is obtained from the patient and 1 of the hospital nurses. Patient was being wheeled into the hospital in a sitting walker that had bars along the back and they struck a bump coming into the hospital and the walker tipped back and fell striking the ground. Nursing indicates patient was unable to protect herself falling backwards and she struck a bar across the back that was on the walker. Patient complains of mild pain across the low back. Patient denies headache or head injury. Patient does complain of continued pain to the right foot. States she injured the foot 3 weeks ago did not reinjure it today but would like it examined while she is here. States she has been seeing Dr. Moreland about this and had an x-ray 3 weeks ago and states that she was told there was no fracture but continues to have swelling and bruising to the foot. States she had tripped getting up from a desk injuring the foot. Has been weightbearing on it. States she has not been taking the pain medication prescribed by her PCP. Denies other injuries or complaints today ROS: See HPI - all other systems were reviewed and are otherwise negative Constitutional: no fever Eyes: no drainage, no blurred vision ENT: no runny nose Cardiovascular: no chest pain Resp: no SOB GI: no vomiting or abdominal pain : no dysuria Integumentary: no rash Allergy: no hives Musculoskeletal: + extremity pain or swelling Neurological: no numbness/tingling, no weakness MEDICATIONS: I agree with the patient medications as charted by the RN. ALLERGIES: I agree with the allergies as charted by the RN. PAST MEDICAL HISTORY/PAST SURGICAL HISTORY: Reviewed and agree as charted by RN. SOCIAL HISTORY: Reviewed and agree as charted by RN. FAMILY HISTORY: No significant familial comorbid conditions directly related to patient complaint EXAM: Reviewed vital signs as charted by RN. CONSTITUTIONAL: Alert and oriented and responds appropriately to questions. Well-appearing; well-nourished HEAD: Normocephalic; atraumatic, no visible traumatic injury to the scalp EYES: PERRL; Conjunctivae clear, sclerae non-icteric ENT: normal nose; no rhinorrhea; moist mucous membranes; pharynx without lesions noted, no uvula edema or deviation, no tonsillar hypertrophy, phonation normal NECK: Supple without meningismus; non-tender; no cervical lymphadenopathy, no masses CARD: RRR; no murmurs, no clicks, no rubs, no gallops; symmetric distal pulses RESP: Normal chest excursion without splinting or tachypnea; breath sounds clear and equal bilaterally; no wheezes, no rhonchi, no rales, pulse oximetry ABD/GI: Normal bowel sounds; non-distended; soft, non-tender, no rebound, no guarding; no palpable organomegaly or masses. BACK: The back appears normal and is mildly tender to palpation across the entire lower back, no palpable step-off, no visible bruising, there is no CVA tenderness EXT: Normal ROM in all joints; soft tissue swelling with bruising is noted to the right foot with mild tenderness over the right midfoot on palpation. Dorsalis pedis and posterior tibial pulses are present in the right foot and ankle, sensation is intact in the toes with capillary refill less than 3 second s; no cyanosis, no effusions, no edema SKIN: Normal color for age and race; warm; dry; good turgor; no acute lesions noted NEURO: Moves all extremities equally; Motor and sensory function intact PSYCH: The patient's mood and manner are appropriate. Grooming and personal hygiene are appropriate. MDM: 84-year-old female with injury to the lower back while being wheeled into the hospital and a rolling walker. Will obtain x-ray of the lumbar spine, minimal tenderness on palpation she is able to sit up without apparent significant discomfort. She has bruising and swelling of the soft tissues to the right foot from prior injury 3 weeks ago would like it reexamined will obtain an x-ray. No upper thoracic or cervical pain on palpation she fully rotates the head and neck without difficulty. She has no visible head injury but given the age and difficulty in falling backwards with protecting her head will obtain CT of the head. TRAVEL OUTSIDE OF THE [place] IN LAST 30 DAYS: No - Related data Allergies/Adverse Reactions: fluvastatin sodium [From Lescol] Allergy (Severe, Verified 09/05/19 08:47) Hives levofloxacin Allergy (Severe, Verified 09/05/19 08:47) N AND V pioglitazone [From Actos] Allergy (Severe, Verified 09/05/19 08:47) RASH amoxicillin [Amoxicillin] Allergy (Mild, Verified 09/05/19 08:47) Hives benazepril HCl [From Lotensin] Adverse Reaction (Mild, Verified 09/05/19 08:47) COUGH ramipril [From Altace] Adverse Reaction (Mild, Verified 09/05/19 08:47) COUGH simvastatin [From Zocor] Adverse Reaction (Mild, Verified 09/05/19 08:47) Hives Past Medical History - Social History Smoking Status: Former Smoker Chew tobacco use (# tins/day): No Drug Abuse: None Family History: Reviewed & Not Pertinent Patient has homicidal ideation: No - Past Medical History Cardiac Medical History: Reports: Hx Hypertension - ON MEDS Denies: Hx Coronary Artery Disease, Hx Heart Attack Pulmonary Medical History: Denies: Hx Asthma, Hx Bronchitis, Hx COPD, Hx Pneumonia Neurological Medical History: Denies: Hx Cerebrovascular Accident, Hx Seizures Endocrine Medical History: Reports: Hx Diabetes Mellitus Type 2 Renal/ Medical History: Denies: Hx Peritoneal Dialysis Malignancy Medical History: Reports: Hx Lung Cancer GI Medical History: Denies: Hx Hepatitis, Hx Hiatal Hernia, Hx Ulcer Musculoskeletal Medical History: Reports Hx Arthritis - all over Infectious Medical History: Denies: Hx Hepatitis Past Surgical History: Reports: Hx Vascular Surgery - port. Denies: Hx Hyster ectomy, Hx Mastectomy, Hx Open Heart Surgery, Hx Pacemaker - Immunizations Hx Diphtheria, Pertussis, Tetanus Vaccination: No Physical Exam - Vital signs Vitals: Temp Pulse Resp BP Pulse Ox 97.4 F 116 H 20 148/81 H 90 L 09/05/19 08:34 09/05/19 08:34 09/05/19 08:34 09/05/19 08:34 09/05/19 08:34 Course - Re-evaluation Re-evalutation: 09/05/19 09:50 Imaging studies do not show evidence of fracture. Will place patient on Mobic, follow-up PCP - Vital Signs Vital signs: Temp Pulse Resp BP Pulse Ox 97.4 F 116 H 20 148/81 H 90 L 09/05/19 08:48 09/05/19 08:34 09/05/19 08:34 09/05/19 08:34 09/05/19 08:34 Discharge - Discharge Clinical Impression: Fall Qualifiers: Encounter type: initial encounter Qualified Code(s): W19.XXXA - Unspecified fall, initial encounter Lumbar contusion Qualifiers: Encounter type: initial encounter Qualified Code(s): S30.0XXA - Contusion of lower back and pelvis, initial encounter Traumatic ecchymosis of right foot Qualifiers: Encounter type: initial encounter Qualified Code(s): S90.31XA - Contusion of right foot, initial encounter Condition: Stable Disposition: HOME, SELF-CARE Instructions: Low Back Pain ([facility]) Additional Instructions: Warm heat to the lower back to help with spasm and discomfort. You may use a heating pad if this helps. Take the Mobic for pain once daily if needed. A prescription has been called into your pharmacy. Follow-up with your primary care providers for reevaluation of symptoms if they persist. Imaging studies did not show evidence of a fracture today Prescriptions: Meloxicam [Mobic] 7.5 mg PO DAILY #10 tablet Referrals: MIRELA BRIGGS MD [Primary Care Provider] - Follow up as needed
--- NOTE | 2019-09-05 09:33 | RADIOLOGY REPORT (SQ) ---
EXAM DESCRIPTION: FOOT RIGHT COMPLETE IMAGES COMPLETED DATE/TIME: 09/05/2019 9:23 am REASON FOR STUDY: injury COMPARISON: None. NUMBER OF VIEWS: Three views. TECHNIQUE: AP, lateral and oblique radiographic images acquired of the right foot. LIMITATIONS: None. FINDINGS: MINERALIZATION: Osteopenia. BONES: No acute fracture or dislocation. JOINTS: The normal tarsometatarsal alignment is preserved. There are enthesophytes at the calcaneal insertion of the Achilles tendon and at the base of the 5th metatarsal. There is also osteoarthrosis of the interphalangeal joints. SOFT TISSUES: No soft tissue swelling or radiopaque foreign body. OTHER: No other finding. IMPRESSION: No acute osseous abnormality of the right foot. TECHNICAL DOCUMENTATION: JOB ID: [id number] 2010 [employer]- All Rights Reserved Reading location - IP/workstation name: [facility]
--- NOTE | 2019-09-05 09:42 | RADIOLOGY REPORT (SQ) ---
EXAM DESCRIPTION: L SPINE WHOLE IMAGES COMPLETED DATE/TIME: 09/05/2019 9:23 am REASON FOR STUDY: fall COMPARISON: MRI of the lumbar spine from 08/29/2017. NUMBER OF VIEWS: Five views including obliques. TECHNIQUE: AP, lateral, oblique, and sacral radiographic images acquired of the lumbar spine. LIMITATIONS: None. FINDINGS: MINERALIZATION: Osteopenia. SEGMENTATION: There are 5 lumbar-type vertebral bodies. There is no transitional anatomy at the lumb osacral junction. ALIGNMENT: Levoconvex scoliotic curvature of the lumbar spine centered at L3-L4. VERTEBRAE: The lumbar vertebral body heights are preserved. There is no fracture. DISCS: The intervertebral disc spaces from T12-L1 to L5-S1 are narrowed and there is associated endpl ate sclerosis and osteophyte formation. POSTERIOR ELEMENTS: No pars interarticularis defect. HARDWARE: None in the spine. PARASPINAL SOFT TISSUES: Atherosclerotic calcification of the abdominal aorta. PELVIS: Intact. OTHER: No other finding. IMPRESSION: 1. No acute fracture or malalignment of the lumbar spine. 2. 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 TECHNICAL DOCUMENTATION: JOB ID: [id number] 2010 [employer]- All Rights Reserved Reading location - IP/workstation name: [email or web address]
--- NOTE | 2019-09-05 09:45 | RADIOLOGY REPORT (SQ) ---
EXAM DESCRIPTION: CT HEAD WITHOUT IMAGES COMPLETED DATE/TIME: 09/05/2019 9:25 am REASON FOR STUDY: fall COMPARISON: None. TECHNIQUE: Axial images acquired through the brain without intravenous contrast. Images reviewed wi th bone, brain and subdural windows. Additional sagittal and coronal reconstructions were generated. Images stored on PACS. All CT scanners at this facility use dose modulation, iterative reconstruction, and/or weight based d osing when appropriate to reduce radiation dose to as low as reasonably achievable (ALARA). [facility]: Dose Right [facility]: CareDose [facility]: Dose Right [facility]: Teradose 4D [facility]: [employer] RADIATION DOSE: CT Rad equipment meets quality standard of care and radiation dose reduction techniq ues were employed. CTDIvol: 53.2 mGy. DLP: 964 mGy-cm. LIMITATIONS: None. FINDINGS: There is diffuse age-appropriate cerebral and cerebellar volume loss. The caliber the manuel tricles is concordant with the degree of sulcation. The confluent areas of hypoattenuation within the supratentorial periventricular and subcortical whit e matter are nonspecific but likely represent the sequela of chronic microvascular ischemia. There i s no acute intracranial hemorrhage, vascular territorial infarct, extra-axial fluid collection, mass effect or midline shift. The javed-white matter differentiation is preserved. There is no effacement of the cerebral sulci or basal subarachnoid cisterns. The globes are aphakic. The orbits are intact. There is a mucous retention cyst within the left max illary sinus. There is no calvarial fracture. IMPRESSION: No acute intracranial abnormality. EVIDENCE OF ACUTE STROKE: NO. COMMENT: Quality ID # [id number]: Final reports with documentation of one or more dose reduction techniques (e.g., Automated exposure control, adjustment of the mA and/or kV according to patient size, use of iterative reconstruction technique) TECHNICAL DOCUMENTATION: JOB ID: [id number] 2010 [employer]- All Rights Reserved Reading location - IP/workstation name: [email or web address]
[2019-09-05 10:13] VITALS: BP 145/78
== END 2019-09-05 10:05 | disposition home or self-care (01) ==
LOC: ER 08:27
DX: S30.0XXA Contusion of lower back and pelvis, initial encounter (principal); S90.31XA Contusion of right foot, initial encounter; W19.XXXA Unspecified fall, initial encounter; Y92.238 Other place in hospital as the place of occurrence of the external cause; I10 Essential (primary) hypertension; E11.9 Type 2 diabetes mellitus without complications; Z88.0 Allergy status to penicillin
CPT/HCPCS: 70450; 72110; 99284

== ENCOUNTER → 2019-09-05 | Outpatient (CLI) | payer MEDICARE, BC ==
--- NOTE | 2019-09-05 10:11 | RADIOLOGY REPORT (SQ) ---
EXAM DESCRIPTION: CT CHEST WITHOUT IMAGES COMPLETED DATE/TIME: 09/05/2019 8:17 am REASON FOR STUDY: LUNG CA (C34.11) C34.11 MALIGNANT NEOPLASM OF UPPER LOBE, RIGHT BRONCHUS OR L COMPARISON: CT of the chest without contrast from 03/07/2019. TECHNIQUE: CT scan performed of the chest without intravenous contrast. Images reviewed with lung, soft tissue and bone windows. Reconstructed coronal and sagittal MPR images reviewed. All images st ored on PACS. All CT scanners at this facility use dose modulation, iterative reconstruction, and/or weight based d osing when appropriate to reduce radiation dose to as low as reasonably achievable (ALARA). [facility]: Dose Right [facility]: CareDose [facility]: Dose Right [facility]: Teradose 4D [facility]: [employer] RADIATION DOSE: CT Rad equipment meets quality standard of care and radiation dose reduction techniq ues were employed. CTDIvol: 5.3 mGy. DLP: 220 mGy-cm. LIMITATIONS: No technical limitations. FINDINGS: LUNGS AND PLEURA: There is moderate to severe centrilobular and paraseptal emphysema. The areas of consolidation associated with volume loss and bronchiectasis in the posterior aspect of the right upper lobe and superior segment of the right lower lobe are unchanged. The 3 mm calcified nod ule in the right upper lobe (image 41 of series 4) is also unchanged. There is no new or enlarging p ulmonary nodule. There is also no acute consolidation, ground-glass opacification, pleural effusion or pneumothorax. HILAR AND MEDIASTINAL STRUCTURES: No adenopathy or mass. HEART AND VASCULAR STRUCTURES: There is moderate atherosclerotic calcification of the coronary arteri es. There is no cardiomegaly or pericardial effusion. The thoracic a aorta is normal in caliber. UPPER ABDOMEN: The morphology of the liver is noncirrhotic. The spleen is normal in size. There is a hiatal hernia. The pancreas is normal in appearance. The gallbladder is present. There is no adr enal mass. THYROID AND OTHER SOFT TISSUES: The left lobe of the thyroid gland is heterogeneous. There is no home nopathy or mass. BONES: No acute fracture or osseous lesion. HARDWARE: None in the chest. OTHER: No other findings. IMPRESSION: Unchanged areas of consolidation associated with volume loss and bronchiectasis in the p osterior aspect of the right upper lobe and superior segment of the right lower lobe that could repre sent the sequela of prior radiation. There is no evidence of recurrence or metastases. TECHNICAL DOCUMENTATION: JOB ID: [id number] Quality ID # [id number]: Final reports with documentation of one or more dose reduction techniques (e.g., Au tomated exposure control, adjustment of the mA and/or kV according to patient size, use of iterative reconstruction technique) 2010 [employer]- All Rights Reserved Reading location - IP/workstation name: [email or web address]
== END ==
LOC: RAD 07:54
PROVIDERS: ATTEND Internal Medicine
DX: C34.11 Malignant neoplasm of upper lobe, right bronchus or lung (principal)
CPT/HCPCS: 71250

== ENCOUNTER 2020-01-20 19:35 | Emergency (ER) | payer MEDICARE, BC ==
--- NOTE | 2020-01-20 20:01 | ER Document Report ---
ED Dizziness/Weakness - General Chief Complaint: Weakness Stated Complaint: WEAKNESS Time Seen by Provider: 01/20/20 19:52 Primary Care Provider: MIRELA BRIGGS MD [ACTIVE STAFF] - Follow up as needed Mode of Arrival: Ambulatory Information source: Patient Notes: 84-year-old female arrives with chief complaint of having numbness of her left fingers and left lower extremity. This occurred around 5:45 tonight. Patient denies any headache but has hypertension. Patient does have a prior history of lung cancer with chemotherapy and radiation therapy and prior history of numbness to her right upper extremity secondary to a herniated disc in her neck. Patient denies any trauma or overuse denies any chest pain or skin rash patient denies any strength problems. She is able to move all extremities well with good basket patcher bilaterally with her hands. She reports numbness to her left hand and her left thigh and leg and foot. Her son is Chaz and he arrived later for the final diagnosis after MRI and CT were done. Both patient and son were told of the results that were negative. Except she had left mastoid problem. TRAVEL OUTSIDE OF THE [place] IN LAST 30 DAYS: No - HPI Patient complains to provider of: Weakness - numbness to left fingers and LLE Onset: This afternoon Onset/Duration: Sudden Quality of pain: No pain Severity: Mild Pain Level: 1 Associated symptoms: Loss of sensation. denies: Chest pain, Confused, Diarrhea, Dizzy, Almost fainted, Fainted, Hearing loss, Less responsive, Lightheaded, Loss of motor function, Loss of strength, Nausea, Palpitations, Recent fall, Ringing/roaring in ear, Short of breath, Sleeping more, Vomiting Baseline gait: Walks w/o assistance - Related Data Allergies/Adverse Reactions: fluvastatin sodium [From Lescol] Allergy (Severe, Verified 09/05/19 08:47) Hives levofloxacin Allergy (Severe, Verified 09/05/19 08:47) N AND V pioglitazone [From Actos] Allergy (Severe, Verified 09/05/19 08:47) RASH amoxicillin [Amoxicillin] Allergy (Mild, Verified 09/05/19 08:47) Hives benazepril HCl [From Lotensin] Adverse Reaction (Mild, Verified 09/05/19 08:47) COUGH ramipril [From Altace] Adverse Reaction (Mild, Verified 09/05/19 08:47) COUGH simvastatin [From Zocor] Adverse Reaction (Mild, Verified 09/05/19 08:47) Hives Past Medical History - General Information source: Patient - Social History Smoking Status: Unknown if Ever Smoked Cigarette use (# per day): No Chew tobacco use (# tins/day): No Smoking Education Provided: No Frequency of alcohol use: None Drug Abuse: None Lives with: Family Family History: Reviewed & Not Pertinent Patient has suicidal ideation: No Patient has homicidal ideation: No - Past Medical History Cardiac Medical History: Reports: Hx Hypertension - ON MEDS Denies: Hx Coronary Artery Disease, Hx Heart Attack Pulmonary Medical History: Denies: Hx Asthma, Hx Bronchitis, Hx COPD, Hx Pneumonia Neurological Medical History: Denies: Hx Cerebrovascular Accident, Hx Seizures Endocrine Medical History: Reports: Hx Diabetes Mellitus Type 2 Renal/ Medical History: Denies: Hx Peritoneal Dialysis Malignancy Medical History: Reports: Hx Lung Cancer GI Medical History: Denies: Hx Hepatitis, Hx Hiatal Hernia, Hx Ulcer Musculoskeletal Medical History: Reports Hx Arthritis - all over Infectious Medical History: Denies: Hx Hepatitis Past Surgical History: Reports: Hx Vascular Surgery - port. Denies: Hx Hysterectomy, Hx Mastectomy, Hx Open Heart Surgery, Hx Pacemaker - Immunizations Hx Diphtheria, Pertussis, Tetanus Vaccination: No Review of Systems - Review of Systems Constitutional: No symptoms reported, Weakness EENT: No symptoms reported. denies: Eye pain, Blurred vision, Tearing, Ear discharge, Nose discharge, Throat pain Cardiovascular: No symptoms reported Respiratory: No symptoms reported Gastrointestinal: No symptoms reported. denies: Abdomen distended, Nausea, Cons tipation, Poor appetite, Poor fluid intake Genitourinary: No symptoms reported Female Genitourinary: No symptoms reported Musculoskeletal: No symptoms reported. denies: Joint swelling, Muscle stiffness Skin: No symptoms reported. denies: Change in hair/nails, Lesions Hematologic/Lymphatic: No symptoms reported Neurological/Psychological: No symptoms reported, Numbness. denies: Homicidal ideation, Paralysis, Lost consciousness Physical Exam - Vital signs Vitals: Temp Pulse Resp BP Pulse Ox 98.4 F 63 13 173/93 H 98 01/20/20 19:36 01/20/20 19:36 01/20/20 19:36 01/20/20 19:36 01/20/20 19:36 Interpretation: Hypertensive - General General appearance: Alert - HEENT Head: Normocephalic, Atraumatic Eyes: Normal Pupils: PERRL Mucous membranes: Normal Pharynx: Normal Neck: Normal - Respiratory Respiratory status: No respiratory distress Chest status: Nontender Breath sounds: Normal Chest palpation: Normal - Cardiovascular Rhythm: Regular Heart sounds: Normal auscultation Murmur: No - Abdominal Inspection: Normal Distension: No distension Bowel sounds: Normal Tenderness: Nontender Organomegaly: No organomegaly - Rectal Hemorrhoids: Other - deferred - Genitourinary Bimanuel exam: Other - deferred - Back Back: Normal - Extremities General upper extremity: Normal inspection, Other - Except for numbness of left hand greater than right hand. General lower extremity: Normal inspection - Neurological Neuro grossly intact: Yes Cognition: Normal Orientation: AAOx4 Whiteface Coma Scale Eye Opening: Spontaneous Whiteface Coma Scale Verbal: Oriented Jyoti Coma Scale Motor: Obeys Commands Jyoti Coma Scale Total: 15 Speech: Normal Motor strength normal: LUE, RUE, LLE, RLE Sensory: Normal - Psychological Associated symptoms: Normal affect - Skin Skin Temperature: Warm Skin Moisture: Dry Course - Vital Signs Vital signs: Temp Pulse Resp BP Pulse Ox 98.1 F 89 18 139/86 H 99 01/21/20 00:33 01/21/20 00:33 01/21/20 00:33 01/21/20 00:33 01/21/20 00:33 - Laboratory Result Diagrams: 01/20/20 20:30 01/20/20 20:30 Laboratory results interpreted by me: 01/20/20 01/20/20 01/20/20 20:30 20:30 23:30 WBC 12.2 H RDW 15.6 H Eosinophils % (Manual) 9 H Abs Neuts (Manual) 8.4 H Absolute Eos (Manual) 1.1 H Chloride 108 H Urine Nitrite POSITIVE H Ur Leukocyte Esterase SMALL H - Diagnostic Test Radiology reviewed: Reports reviewed - CT head neg except atrophy Critical Care Note - Critical Care Note Comments: I discussed case with patient and her son Ga who is automobile drivers [employer]. Patient has a history of lung cancer status post chemotherapy and radiation therapy and also has a spinal herniated disc problem affecting her right hand and now her left hand. We will attempt small dose of Decadron and Toradol IV prior to discharge. Blood pressure much improved by 2255 Discharge - Discharge Clinical Impression: Left upper extremity numbness, Numbness of left lower extremity, Mastoiditis of left side, Neuropathy Condition: Good Disposition: HOME, SELF-CARE Additional Instructions: Follow-up with orthopedics and may apply [id number] Voltaren gel over affected lesions of elbows and other painful areas. Take medicines as directed Decadron 4 daily x3 days. Prescriptions: Dexamethasone [Decadron 4 Mg Tablet] 4 mg PO DAILY #3 tablet Dexamethasone [Decadron 4 Mg Tablet] 4 mg PO DAILY #3 tablet Cephalexin Monohydrate [Keflex 500 mg Capsule] 500 mg PO BID 5 Days #14 capsule Referrals: MIRELA BRIGGS MD [ACTIVE STAFF] - Follow up as needed
--- NOTE | 2020-01-20 20:44 | RADIOLOGY REPORT (SQ) ---
EXAM DESCRIPTION: CT HEAD WITHOUT IV CONTRAST COMPLETED DATE/TME: 01/20/2020 19:55 CLINICAL HISTORY: 84 years, Female, numbness of left side COMPARISON: CT from 09/05/2019. TECHNIQUE: Axial images without IV contrast. Images stored on PACS. All CT scanners at this facility use dose modulation, iterative reconstruction, and/or weight based dosing when appropriate to reduce radiation dose to as low as reasonably achievable (ALARA). FINDINGS: Mild central and [id number] cortical atrophy. No suspicious acute intra-axial or extra-axial abnormality. Vascular calcifications are present. Paranasal sinuses without acute findings. Unchanged tiny retention cyst in the left medial maxillary sinus. IMPRESSION: No acute intracranial abnormalities.
[2020-01-20 20:46] LABS: HEMATOCRIT 40.6 % (36.0-47.0); HEMOGLOBIN 13.6 g/dL (12.0-15.5); MEAN CORPUSCULAR HEMOGLOBIN 28.8 pg (27.0-33.4); MEAN CORPUSCULAR HGB CONC 33.4 g/dL (32.0-36.0); MEAN CORPUSCULAR VOLUME 86 fl (80-97); RED CELL DISTRIBUTION WIDTH 15.6 % (11.5-14.0); WHITE BLOOD COUNT 12.2 10^3/uL (4.0-10.5)
[2020-01-20 20:52] LABS: INTERNATIONAL RATION (INR) 0.91; PROTHROMBIN TIME 12.5 SEC (11.4-15.4)
[2020-01-20 20:53] LABS: PARTIAL THROMBOPLASTIN TIME 27.2 SEC (23.5-35.8)
--- NOTE | 2020-01-20 20:55 | EKG REPORT ---
SEVERITY:- ABNORMAL ECG - SINUS RHYTHM NONSPECIFIC T ABNORMALITIES, LATERAL LEADS : Confirmed by: Krys Gusman 20-Jan-2020 20:54:10
[2020-01-20 21:03] LABS: ALBUMIN 3.8 g/dL (3.5-5.0); ALKALINE PHOSPHATASE 41 U/L (38-126); ANION GAP 8 (5-19); ASPARTATE AMINO TRANSFERASE 21 U/L (14-36); BILIRUBIN,DIRECT 0.3 mg/dL (0.0-0.4); BILIRUBIN,TOTAL 0.5 mg/dL (0.2-1.3); BLOOD UREA NITROGEN 17 mg/dL (7-20); CALCIUM 8.7 mg/dL (8.4-10.2); CARBON DIOXIDE 24 mmol/L (22-30); CHLORIDE 108 mmol/L (98-107); CREATINE KINASE 60 U/L (30-135); GLUCOSE 101 mg/dL (75-110); POTASSIUM 4.2 mmol/L (3.6-5.0); TOTAL PROTEIN 6.6 g/dL (6.3-8.2)
[2020-01-20 21:07] LABS: PLATELET COUNT 332 10^3/uL (150-450)
[2020-01-20 21:09] LABS: ABSOLUTE MONOCYTES # (MANUAL) 0.7 10^3/uL (0.1-1.4); BASOPHILS % (MANUAL) 0 % (0-2); EOSINOPHILS % (MANUAL) 9 % (0-6); LYMPHOCYTES % (MANUAL) 16 % (13-45); MONOCYTES % (MANUAL) 6 % (3-13); SEGMENTED NEUTROPHILS % (MAN) 69 % (42-78); TOTAL CELLS COUNTED 100
[2020-01-20 21:10] LABS: ANISOCYTOSIS SLIGHT; PLATELET CLUMPS PRESENT; PLATELET COMMENT ADEQUATE; TOXIC GRANULATION SLIGHT; TOXIC VACUOLATION PRESENT
[2020-01-20 21:18] LABS: NT PRO BNP 138 pg/mL (<450)
[2020-01-20 21:21] LABS: TROPONIN I < 0.012 ng/mL
--- NOTE | 2020-01-20 21:46 | RADIOLOGY REPORT (SQ) ---
EXAM DESCRIPTION: MR BRAIN WITHOUT IV CONTRAST COMPLETED DATE/TME: 01/20/2020 19:55 CLINICAL HISTORY: 84 years, Female, numbness of left side COMPARISON: CT today's date TECHNIQUE: 292 Images stored on PACS. LIMITATIONS: None. FINDINGS: The pituitary and suprasellar regions are intact. The globes are intact. Paranasal sinuses are well aerated. Trace of fluid in the left mastoid air cells. Normal flow void in visualized intracranial vessels. The visualized cranial nerve complex these are unremarkable. There is no intracranial hemorrhage. Diffusion-weighted images are normal without evidence for acute infarct. Age-appropriate atrophy. Areas of increased FLAIR/T2 white matter signal consistent with sequelae of small vessel ischemic change. No mass or midline shift IMPRESSION: Age-appropriate atrophy with small vessel ischemic change. Trace fluid left mastoid air cells. copyright 2011 [employer]- All Rights Reserved
[2020-01-20] MEDS ORDERED: DEXAMETHASONE SOD PHOS INJ 10 MG/1 ML VIAL IV ONE (22:51)
[2020-01-20] MEDS ORDERED: KETOROLAC TROMETHAMINE INJ/PF 30 MG/1 ML SDV IV ONE (22:52)
[2020-01-20 23:55] LABS: APPEARANCE,URINE CLEAR; BILIRUBIN,URINE NEGATIVE (NEGATIVE); COLOR,URINE YELLOW; GLUCOSE, URINE NEGATIVE (NEGATIVE); KETONES,URINE NEGATIVE (NEGATIVE); LEUKOCYTE ESTERASE,URINE SMALL (NEGATIVE); NITRITE,URINE POSITIVE (NEGATIVE); PROTEIN,URINE NEGATIVE (NEGATIVE); URINE SPECIFIC GRAVITY 1.012; UROBILINOGEN,URINE NEGATIVE mg/dL (<2.0)
[2020-01-21 00:35] VITALS: BP 139/86
== END 2020-01-21 00:35 | disposition home or self-care (01) ==
LOC: ER 19:35
DX: E11.40 Type 2 diabetes mellitus with diabetic neuropathy, unspecified (principal); H70.92 Unspecified mastoiditis, left ear; R20.0 Anesthesia of skin; R53.1 Weakness; I10 Essential (primary) hypertension; Z85.118 Personal history of other malignant neoplasm of bronchus and lung; Z92.3 Personal history of irradiation; Z92.21 Personal history of antineoplastic chemotherapy; Z87.59 Personal history of other complications of pregnancy, childbirth and the puerperium; Z88.8 Allergy status to other drugs, medicaments and biological substances; Z88.1 Allergy status to other antibiotic agents; Z88.0 Allergy status to penicillin
CPT/HCPCS: 93005; 99285; 96374; 96375; 36415; 82550; 83605; 85025; 85610; 85730; 80053; 81001; 84484; 83880; 70551; 70450; 93010; J1885; J1100

== ENCOUNTER → 2020-03-13 | Outpatient (CLI) | payer MEDICARE, BC ==
--- NOTE | 2020-03-13 12:33 | RADIOLOGY REPORT (SQ) ---
EXAM DESCRIPTION: CT CHEST WITHOUT IMAGES COMPLETED DATE/TIME: 03/13/2020 10:17 am REASON FOR STUDY: C34.11 MALIGNANT NEOPLASM OF UPPER LOBE, RIGHT BRONCHUS OR LUNG C34.11 MALIGNANT NEOPLASM OF UPPER LOBE, RIGHT BRONCHUS OR L COMPARISON: 09/05/2019 TECHNIQUE: CT scan performed of the chest without intravenous contrast. Images reviewed with lung, soft tissue and bone windows. Reconstructed coronal and sagittal MPR images reviewed. All images st ored on PACS. All CT scanners at this facility use dose modulation, iterative reconstruction, and/or weight based d osing when appropriate to reduce radiation dose to as low as reasonably achievable (ALARA). [facility]: Dose Right [facility]: CareDose [facility]: Dose Right [facility]: Teradose 4D [facility]: [employer] RADIATION DOSE: CT Rad equipment meets quality standard of care and radiation dose reduction techniq ues were employed. CTDIvol: 5.0 mGy. DLP: 218 mGy-cm. mGy. LIMITATIONS: No technical limitations. FINDINGS: LUNGS AND PLEURA: Decreased volume in the right lung. Extensive centrilobular and parasep deya emphysematous changes. Chronic apical consolidation. Chronic consolidation in the posteromedial aspect of the right upper lobe and in the superior segment of the right lower lobe there appears to be associated bronchiectasis. There is no new pulmonary mass. No pleural effusion. HILAR AND MEDIASTINAL STRUCTURES: No identified masses or abnormal nodes. No obvious aneurysm. HEART AND VASCULAR STRUCTURES: No aneurysm. No pericardial effusion. Coronary artery calcifications . UPPER ABDOMEN: No significant findings. Limited exam. THYROID AND OTHER SOFT TISSUES: No masses. No adenopathy. BONES: No significant finding. HARDWARE: None in the chest. OTHER: No other significant findings. IMPRESSION: There are chronic and post therapeutic changes in the chest as described. There is no m etastatic or recurrent neoplasm. TECHNICAL DOCUMENTATION: JOB ID: [id number] Quality ID # [id number]: Final reports with documentation of one or more dose reduction techniques (e.g., Au tomated exposure control, adjustment of the mA and/or kV according to patient size, use of iterative reconstruction technique) 2010 [employer]- All Rights Reserved Reading location - IP/workstation name: [email or web address]
== END ==
LOC: RAD 09:51
PROVIDERS: ATTEND Internal Medicine
DX: C34.11 Malignant neoplasm of upper lobe, right bronchus or lung (principal)
CPT/HCPCS: 71250